=== PATIENT | male | born 1945 | race Caucasian/White ===

== ENCOUNTER 2018-01-13 23:38 | Inpatient (IN) | payer MEDICARE, OTHER ==
[2018-01-14 00:20] LABS: ADD MAN DIFF? NO
[2018-01-14 00:25] LABS: BASO % 1 % (0-3); EOS # 0.1 x10^3/uL (0.0-0.7); EOS % 2 % (0-3); HEMATOCRIT 39.2 % (39.0-53.0); LYMPH # 1.9 x10^3/uL (1.0-4.8); LYMPH % 25 % (24-48); MEAN CORPUSCULAR HEMOGLOBIN 32 pg (25-35); MEAN CORPUSCULAR HGB CONC 33 g/dL (31-37); MEAN CORPUSCULAR VOLUME 97 fL (79-100); MONO % 13 % (0-9); NEUT # 4.6 x10^3uL (1.8-7.7); NEUT % 61 % (31-73); PLATELET COUNT 83 x10^3/uL (140-400); RED BLOOD COUNT 4.04 x10^6/uL (4.30-5.70); RED CELL DISTRIBUTION WIDTH 12.5 % (11.5-14.5); WHITE BLOOD COUNT 7.6 x10^3/uL (4.0-11.0)
[2018-01-14] MEDS: IPRATRPIUM/ALBUTEROL 0.5/2.5MG 3 ML NEBU. NEB ×4 (00:30→07:39)
[2018-01-14 00:40] LABS: ANION GAP 3 (6-14); BLOOD UREA NITROGEN 18 mg/dL (8-26); BUN/CREATININE RATIO 20 (6-20); CALCIUM 8.8 mg/dL (8.5-10.1); CARBON DIOXIDE 40 mmol/L (21-32); CHLORIDE 99 mmol/L (98-107); CREATININE 0.9 mg/dL (0.7-1.3); GFR 83.4; GLUCOSE 121 mg/dL (70-99); POTASSIUM 4.5 mmol/L (3.5-5.1); SODIUM 142 mmol/L (136-145)
[2018-01-14 00:46] LABS: ALBUMIN 3.5 g/dL (3.4-5.0); ALBUMIN/GLOBULIN RATIO 1.1 (1.0-1.7); ALK PHOS 62 U/L (46-116); ALT (SGPT) 40 U/L (16-63); AST (SGOT) 29 U/L (15-37); TOTAL BILIRUBIN 0.6 mg/dL (0.2-1.0); TOTAL PROTEIN 6.7 g/dL (6.4-8.2)
[2018-01-14 00:48] LABS: LACTIC ACID 0.4 mmol/L (0.4-2.0)
[2018-01-14 00:51] LABS: TROPONINI < 0.017 ng/mL (0.000-0.055)
[2018-01-14] MEDS: methylPREDNISolone SOD SUCC PF 125 MG/2 ML VIAL. IV (00:51)
[2018-01-14 00:52] LABS: NT-PRO BNP 79 pg/mL (0-124)
[2018-01-14 01:16] LABS: INFLUENZA A PATIENT NEGATIVE (NEGATIVE); INFLUENZA B PATIENT NEGATIVE (NEGATIVE); OBC FLU VALID
[2018-01-14] MEDS ORDERED: ACETAMINOPHEN 325 MG TABLET. PO ×2 (01:30→10:15)
[2018-01-14] MEDS ORDERED: ONDANSETRON PF 4 MG/2 ML VIAL. IV ×2 (01:30→10:15)
[2018-01-14] MEDS ORDERED: levOFLOXacin PER PHARMACY. MC (01:30)
[2018-01-14 02:00] LABS: BILIRUBIN,URINE SMALL (NEG); CLARITY,URINE CLEAR; COLOR,URINE AMBER; GLUCOSE,URINE NEGATIVE (NEG); NITRITE,URINE NEGATIVE (NEG); PH,URINE 5.5; PROTEIN,URINE NEGATIVE (NEG-TRACE)
[2018-01-14 02:01] LABS: BACTERIA,URINE 0 /HPF (0-FEW); HYALINE CASTS, URINE OCCASIONAL /HPF; RBC,URINE OCC /HPF (0-2); SQUAMOUS EPITHELIAL CELL,UR OCC /LPF; WBC,URINE OCC /HPF (0-4)
[2018-01-14 02:20] LABS: BASE EXCESS ABG 12 mmol/L (-3-3); HCO3 ABG 45 mmol/L (21-28)
[2018-01-14 02:29] LABS: PH ABG 7.19 (7.35-7.45)
[2018-01-14 02:30] LABS: FIO2 ABG 30; PCO2 ABG 120 mmHg (35-46); PO2 ABG < 42 mmHg (65-108); SAT O2 ABG 45 % (92-99)
[2018-01-14 05:30] LABS: BASE EXCESS ABG 7 mmol/L (-3-3); HCO3 ABG 36 mmol/L (21-28); PO2 ABG 110 mmHg (65-108); SAT O2 ABG 98 % (92-99)
[2018-01-14 05:43] LABS: FIO2 ABG 40; PCO2 ABG 75 mmHg (35-46)
[2018-01-14] MEDS ORDERED: PNEUMOCOCCAL VAX SCREEN BY RX. MC (06:15)
[2018-01-14 06:23] LABS: TROPONINI < 0.017 ng/mL (0.000-0.055)
[2018-01-14] MEDS ORDERED: INFLUENZA VAX SCREEN BY RX. MC (08:00)
[2018-01-14] MEDS: PNEUMOC CONJ VACC 23-VALENT 0.5 ML VIAL. VAX IM (09:00)
[2018-01-14] MEDS: FLU VACC QS2017-18 (36MOS+)/PF 0.5 ML SYRINGE. VAX IM (09:00)
[2018-01-14] MEDS ORDERED: traMADol 50 MG TABLET PO (10:15)
[2018-01-14] MEDS ORDERED: hydrALAZINE 20 MG/ML VIAL. IVP (10:15)
[2018-01-14] MEDS ORDERED: DOCUSATE SODIUM 100 MG CAPSULE. PO (10:15)
[2018-01-14 10:31] LABS: BASE EXCESS ABG 8 mmol/L (-3-3); HCO3 ABG 37 mmol/L (21-28); PH ABG 7.31 (7.35-7.45); PO2 ABG 93 mmHg (65-108); SAT O2 ABG 97 % (92-99)
[2018-01-14 10:33] LABS: PCO2 ABG 76 mmHg (35-46)
[2018-01-14 10:34] LABS: FIO2 ABG 35%
[2018-01-14] MEDS: METHADONE 10 MG TABLET. PO ×2 (12:30→15:00)
[2018-01-14 12:33] LABS: TROPONINI < 0.017 ng/mL (0.000-0.055)
[2018-01-14] MEDS: ASPIRIN ENTERIC COATED 81 MG TABLET.DR. PO (13:00)
[2018-01-14] MEDS: SPIRONOLACTONE 25 MG TABLET PO (13:01)
[2018-01-14] MEDS: DULoxetine HCL 30 MG CAPSULE.DR PO (13:01)
[2018-01-14] MEDS: ENOXAPARIN 40 MG/0.4 ML SYRINGE. SQ (13:06)
[2018-01-14] MEDS: DOCUSATE SODIUM 100 MG CAPSULE. PO ×2 (13:07→20:50)
[2018-01-14] MEDS: FERROUS SULFATE 325 MG TABLET. PO (13:14)
[2018-01-14] MEDS: ALBUTEROL SULFATE 2.5 MG/3 ML NEBU. NEB ×3 (15:31→19:52)
[2018-01-14 17:17] LABS: MRSA BY PCR Negative (Negative)
[2018-01-14] MEDS: BUDESONIDE 0.5 MG/2 ML NEBU. NEB (19:52)
[2018-01-14] MEDS: NORTRIPTYLINE 10 MG CAPSULE PO (20:50)
[2018-01-14] MEDS: GABAPENTIN 300 MG CAPSULE. PO (20:51)
[2018-01-14] MEDS: methylPREDNISolone SOD SUCC PF 40 MG/ML VIAL. IV (20:51)
[2018-01-14] MEDS: MONTELUKAST SODIUM 10 MG TABLET. PO (20:51)
[2018-01-14] MEDS: FAMOTIDINE 20 MG TABLET. PO (20:51)
[2018-01-15 04:52] LABS: ADD MAN DIFF? NO
[2018-01-15 05:08] LABS: BASO % 0 % (0-3); EOS % 0 % (0-3); HEMATOCRIT 38.9 % (39.0-53.0); LYMPH # 0.5 x10^3/uL (1.0-4.8); LYMPH % 5 % (24-48); MEAN CORPUSCULAR HEMOGLOBIN 32 pg (25-35); MEAN CORPUSCULAR HGB CONC 33 g/dL (31-37); MEAN CORPUSCULAR VOLUME 96 fL (79-100); MONO # 0.3 x10^3/uL (0.0-1.1); MONO % 3 % (0-9); NEUT # 8.3 x10^3uL (1.8-7.7); NEUT % 92 % (31-73); PLATELET COUNT 92 x10^3/uL (140-400); RED BLOOD COUNT 4.06 x10^6/uL (4.30-5.70); RED CELL DISTRIBUTION WIDTH 12.8 % (11.5-14.5)
[2018-01-15 05:49] LABS: ANION GAP 6 (6-14); BLOOD UREA NITROGEN 16 mg/dL (8-26); CALCIUM 9.5 mg/dL (8.5-10.1); CARBON DIOXIDE 35 mmol/L (21-32); CHLORIDE 98 mmol/L (98-107); GFR 73.9; GLUCOSE 137 mg/dL (70-99); POTASSIUM 4.5 mmol/L (3.5-5.1); SODIUM 139 mmol/L (136-145)
[2018-01-15] MEDS: ALPRAZolam 0.5 MG TABLET PO ×2 (08:46→19:39)
[2018-01-15] MEDS: DOCUSATE SODIUM 100 MG CAPSULE. PO ×2 (08:46→19:38)
[2018-01-15] MEDS: DULoxetine HCL 30 MG CAPSULE.DR PO (08:46)
[2018-01-15] MEDS: methylPREDNISolone SOD SUCC PF 40 MG/ML VIAL. IV ×2 (08:46→19:39)
[2018-01-15] MEDS: ASPIRIN ENTERIC COATED 81 MG TABLET.DR. PO (08:46)
[2018-01-15] MEDS: SPIRONOLACTONE 25 MG TABLET PO (08:47)
[2018-01-15] MEDS: FERROUS SULFATE 325 MG TABLET. PO (08:47)
[2018-01-15] MEDS: BUDESONIDE 0.5 MG/2 ML NEBU. NEB ×2 (09:03→19:17)
[2018-01-15] MEDS: ALBUTEROL SULFATE 2.5 MG/3 ML NEBU. NEB ×4 (09:04→19:16)
[2018-01-15] MEDS: METHADONE 10 MG TABLET. PO (09:26)
[2018-01-15] MEDS: DOXYCYCLINE HYCLATE 100 MG TABLET PO ×2 (13:51→19:38)
[2018-01-15] MEDS: ENOXAPARIN 40 MG/0.4 ML SYRINGE. SQ (13:51)
[2018-01-15] MEDS: VANCOMYCIN 2 GM in IV DEXTROSE 5 %-0.2 % NACL 500 ML IV (13:52)
[2018-01-15] MEDS: VANCOMYCIN PER PHARMACY MC (14:28)
[2018-01-15] MEDS: NORTRIPTYLINE 10 MG CAPSULE PO (19:38)
[2018-01-15] MEDS: FAMOTIDINE 20 MG TABLET. PO (19:39)
[2018-01-15] MEDS: GABAPENTIN 300 MG CAPSULE. PO (19:39)
[2018-01-15] MEDS: HYDROcodone/APAP 5/325MG 1 TAB TABLET PO (19:40)
[2018-01-15] MEDS: IPRATRPIUM/ALBUTEROL 0.5/2.5MG 3 ML NEBU. NEB (20:00)
[2018-01-15] MEDS: MONTELUKAST SODIUM 10 MG TABLET. PO (21:00)
[2018-01-16] MEDS: VANCOMYCIN 1.25 GM in IV DEXTROSE 5% 250 ML IV (01:40)
[2018-01-16] MEDS: ALPRAZolam 0.5 MG TABLET PO ×4 (01:42→21:44)
[2018-01-16] MEDS: MORPHINE SULFATE 2 MG/ML DISP.SYRIN. IV ×7 (01:43→21:44)
[2018-01-16] MEDS ORDERED: IPRATRPIUM/ALBUTEROL 0.5/2.5MG 3 ML NEBU. NEB (02:00)
[2018-01-16] MEDS: ALBUTEROL SULFATE 2.5 MG/3 ML NEBU. NEB (02:33)
[2018-01-16] MEDS: IPRATRPIUM/ALBUTEROL 0.5/2.5MG 3 ML NEBU. NEB ×4 (08:03→18:27)
[2018-01-16] MEDS: BUDESONIDE 0.5 MG/2 ML NEBU. NEB ×2 (08:03→18:27)
[2018-01-16] MEDS: DOCUSATE SODIUM 100 MG CAPSULE. PO ×2 (08:32→20:58)
[2018-01-16] MEDS: DULoxetine HCL 30 MG CAPSULE.DR PO (08:32)
[2018-01-16] MEDS: METHADONE 10 MG TABLET. PO (08:32)
[2018-01-16] MEDS: SPIRONOLACTONE 25 MG TABLET PO (08:32)
[2018-01-16] MEDS: DOXYCYCLINE HYCLATE 100 MG TABLET PO ×2 (08:32→20:59)
[2018-01-16 08:33] LABS: BASO % 0 % (0-3); EOS % 0 % (0-3); HEMOGLOBIN 14.3 g/dL (13.0-17.5); LYMPH # 0.7 x10^3/uL (1.0-4.8); LYMPH % 6 % (24-48); MEAN CORPUSCULAR HEMOGLOBIN 31 pg (25-35); MEAN CORPUSCULAR HGB CONC 32 g/dL (31-37); MEAN CORPUSCULAR VOLUME 97 fL (79-100); MONO # 1.1 x10^3/uL (0.0-1.1); MONO % 8 % (0-9); NEUT # 11.6 x10^3uL (1.8-7.7); NEUT % 87 % (31-73); PLATELET COUNT 135 x10^3/uL (140-400); RED BLOOD COUNT 4.54 x10^6/uL (4.30-5.70); RED CELL DISTRIBUTION WIDTH 12.6 % (11.5-14.5); WHITE BLOOD COUNT 13.4 x10^3/uL (4.0-11.0)
[2018-01-16] MEDS: FERROUS SULFATE 325 MG TABLET. PO (08:33)
[2018-01-16] MEDS: ASPIRIN ENTERIC COATED 81 MG TABLET.DR. PO (08:33)
[2018-01-16] MEDS: methylPREDNISolone SOD SUCC PF 40 MG/ML VIAL. IV ×2 (08:33→20:58)
[2018-01-16 08:41] LABS: ADD MAN DIFF? YES
[2018-01-16 10:35] LABS: BLOOD UREA NITROGEN 16 mg/dL (8-26); CALCIUM 9.4 mg/dL (8.5-10.1); CARBON DIOXIDE 42 mmol/L (21-32); CREATININE 0.8 mg/dL (0.7-1.3); GFR 95.6; GLUCOSE 114 mg/dL (70-99); POTASSIUM 4.7 mmol/L (3.5-5.1); SODIUM 140 mmol/L (136-145)
[2018-01-16 10:37] LABS: ANION GAP 0 (6-14); CHLORIDE 98 mmol/L (98-107)
[2018-01-16 11:29] LABS: % BANDS 6 % (0-9); NUCLEATED RBC 1
[2018-01-16 11:31] LABS: PLT ESTIMATE DECREASED (ADEQUATE); POLYCHROMASIA SLIGHT
[2018-01-16 11:32] LABS: % LYMPHS 4 % (24-48); % MONOS 6 % (0-10); % SEGS 84 % (35-66)
[2018-01-16] MEDS: ENOXAPARIN 40 MG/0.4 ML SYRINGE. SQ (13:22)
[2018-01-16] MEDS: GABAPENTIN 300 MG CAPSULE. PO (20:58)
[2018-01-16] MEDS: NORTRIPTYLINE 10 MG CAPSULE PO (20:58)
[2018-01-16] MEDS: MONTELUKAST SODIUM 10 MG TABLET. PO (20:59)
[2018-01-16] MEDS: FAMOTIDINE 20 MG TABLET. PO (20:59)
[2018-01-17] MEDS: IPRATRPIUM/ALBUTEROL 0.5/2.5MG 3 ML NEBU. NEB ×2 (07:40→11:20)
[2018-01-17] MEDS: BUDESONIDE 0.5 MG/2 ML NEBU. NEB (07:40)
[2018-01-17] MEDS: FERROUS SULFATE 325 MG TABLET. PO (08:00)
[2018-01-17] MEDS: ASPIRIN ENTERIC COATED 81 MG TABLET.DR. PO (08:10)
[2018-01-17] MEDS: MORPHINE SULFATE 2 MG/ML DISP.SYRIN. IV ×3 (08:10→14:45)
[2018-01-17] MEDS: ALPRAZolam 0.5 MG TABLET PO ×2 (08:10→14:45)
[2018-01-17] MEDS: DULoxetine HCL 30 MG CAPSULE.DR PO (08:40)
[2018-01-17] MEDS: SPIRONOLACTONE 25 MG TABLET PO (08:40)
[2018-01-17] MEDS: DOCUSATE SODIUM 100 MG CAPSULE. PO (08:40)
[2018-01-17] MEDS: METHADONE 10 MG TABLET. PO (08:41)
[2018-01-17] MEDS: DOXYCYCLINE HYCLATE 100 MG TABLET PO (09:00)
[2018-01-17] MEDS: methylPREDNISolone SOD SUCC PF 40 MG/ML VIAL. IV (09:00)
[2018-01-17] MEDS: ENOXAPARIN 40 MG/0.4 ML SYRINGE. SQ (11:56)
[2018-01-17] MEDS: ALBUTEROL SULFATE 2.5 MG/3 ML NEBU. NEB (13:44)
[2018-01-17] MEDS ORDERED: LACTOBACILLUS RHAMNOSUS GG 1 CAPSULE. PO (21:00)
[2018-01-18] MEDS ORDERED: predniSONE 20 MG TABLET PO (09:00)
== END 2018-01-17 17:18 | disposition hospice, home (50) | DRG 91 ==
LOC: ER 23:38 → 2 SOUTH 01-14 01:15
PROC: 5A09357 Assistance with Respiratory Ventilation, Less than 24 Consecutive Hours, Continuous Positive Airway Pressure (ICD-10-PCS; principal; 2018-01-14)
PROC: 5A09357 Assistance with Respiratory Ventilation, Less than 24 Consecutive Hours, Continuous Positive Airway Pressure (ICD-10-PCS; 2018-01-15)
DX: G92 Toxic encephalopathy (principal); J96.22 Acute and chronic respiratory failure with hypercapnia; R65.11 Systemic inflammatory response syndrome (SIRS) of non-infectious origin with acute organ dysfunction; J96.21 Acute and chronic respiratory failure with hypoxia; R78.81 Bacteremia; G93.41 Metabolic encephalopathy; J44.1 Chronic obstructive pulmonary disease with (acute) exacerbation; F19.20 Other psychoactive substance dependence, uncomplicated; F32.9 Major depressive disorder, single episode, unspecified; G89.29 Other chronic pain; I10 Essential (primary) hypertension; K21.9 Gastro-esophageal reflux disease without esophagitis; Z66 Do not resuscitate; Z79.891 Long term (current) use of opiate analgesic; Z87.891 Personal history of nicotine dependence; Z91.19 Patient's noncompliance with other medical treatment and regimen; Z90.49 Acquired absence of other specified parts of digestive tract
CPT/HCPCS: 36415; 36600; 71045; 80048; 80053; 81001; 82805; 83605; 83880; 84484; 85007; 85025; 87040; 87205; 87641; 87804; 87804-59; 93005; 94640; 94660; 94760; 96365; 96375; 97162-GP; 97166-GO; 99291; 99291-25; J1650; J1956; J2270; J2920; J2930; J3370; J7613; J7620; J7626